=== PATIENT | female | born 1990 | race Caucasian/White ===

== ENCOUNTER 2017-12-27 19:42 | Emergency (ER) | payer MEDICAID ==
--- NOTE | 2017-12-27 20:10 | Emergency Department Record ---
History of Present Illness - General Chief complaint: Pain Stated complaint: HURTS ALL OVER Time Seen by Provider: 12/27/17 19:46 Source: Patient Mode of Arrival: Ambulatory Limitations: No limitations - History of Present Illness Initial comments: 27 yo female presents to ED for "all over body pain that began 1 week ago". Patient reports "I feel like there is a gravity blanket on me, and that I am bruised all over". Patient denies any bruising or injury/trauma. Patient denies specific abdominal pain or cramping symptoms, reports that she is 6 months . Patient denies health problems other than "tachycardia for years, my doctor does not know why". Patient denies fevers, chills, or recent illness. MD Complaint: Other Onset/Timin -: Week(s) History of Same: No Quality: Aching Consistency: Constant Improves with: Nothing Worsens with: Walking, Weight bearing Associated Symptoms: Denies other symptoms - Related Data Home Medications Medication Instructions Recorded Confirmed Last Taken Vit,Calc78/Iron/Folic 1 each PO DAILY 12/27/17 12/27/17 Unknown [Prenatabs FA Tablet] Ranitidine HCl [Zantac] 75 mg PO DAILY 12/27/17 12/27/17 Unknown Allergies Allergy/AdvReac Type Severity Reaction Status Date / Time No Known Drug Allergies Allergy Verified 12/27/17 19:48 Travel Screening - Travel/Exposure Within Last 30 Days Have you traveled within the last 30 days?: No - Travel/Exposure Within Last Year Have you traveled outside the [place] in the last year?: No - Additonal Travel Details Have you been exposed to anyone with a communicable illness?: No - Travel Symptoms Symptom Screening: None Review of Systems Constitutional: Denies: Chills, Fever, Malaise, Night sweats Eyes: Denies: Eye discharge, Eye pain ENT: Denies: Congestion, Ear pain, Epistaxis Respiratory: Denies: Cough, Dyspnea Cardiovascular: Denies: Chest pain, Dyspnea on exertion Endocrine: Denies: Fatigue, Heat or cold intolerance Gastrointestinal: Denies: Abdominal pain, Nausea, Vomiting Genitourinary: Denies: Incontinence, Retention Musculoskeletal: Reports: Myalgia. Denies: Arthralgia, Back pain, Gout, Joint swelling Skin: Denies: Bruising, Change in color Neurological: Denies: Abnormal gait, Confusion, Headache, Seizure Psychiatric: Denies: Anxiety Hematological/Lymphatic: Denies: Anemia, Blood Clots Past Medical History - SOCIAL HISTORY Smoking Status: Never smoker Alcohol Use: None Drug Use: None - RESPIRATORY Hx Respiratory Disorders: No - CARDIOVASCULAR Hx Cardio Disorders: No - NEURO Hx Neuro Disorders: No - GI Hx GI Disorders: No - Hx Genitourinary Disorders: No - ENDOCRINE Hx Endocrine Disorders: No - MUSCULOSKELETAL Hx Musculoskeletal Disorders: No - PSYCH Hx Psych Problems: No - HEMATOLOGY/ONCOLOGY Hx Hematology/Oncology Disorders: No Family Medical History Any Significant Family History?: No Physical Exam - General General Appearance: Alert, Oriented x3, Cooperative, No acute distress Limitations: No limitations - Head Head exam: Atraumatic, Normocephalic, Normal inspection Head exam detail: negative: Abrasion, Contusion, Pena's sign, General tenderness, Hematoma, Laceration - Eye Eye exam: Normal appearance. negative: Conjunctival injection, Periorbital swelling, Periorbital tenderness, Scleral icterus - ENT Ear exam: negative: Auricular hematoma, Auricular trauma Nasal Exam: negative: Active bleeding, Discharge, Dried blood, Foreign body Mouth exam: negative: Drooling, Laceration, Muffled voice, Tongue elevation - Neck Neck exam: Normal inspection. negative: Meningismus, Tenderness - Respiratory Respiratory exam: Normal lung sounds bilaterally. negative: Rales, Respiratory distress, Rhonchi, Stridor - Cardiovascular Cardiovascular Exam: Normal rhythm, Normal heart sounds, Tachycardia - GI/Abdominal GI/Abdominal exam: Soft. negative: Rebound, Rigid, Tenderness - Rectal Rectal exam: Deferred - exam: Deferred - Extremities Extremities exam: Normal inspection. negative: Calf tenderness, Pedal edema, Tenderness - Back Back exam: Denies: CVA tenderness (R), CVA tenderness (L) - Neurological Neurological exam: Alert, Normal gait, Oriented X3 - Psychiatric Psychiatric exam: Normal affect, Normal mood - Skin Skin exam: Normal color. negative: Abrasion Type of lesion: negative: abrasion Course Vital Signs 12/27/17 19:49 Temperature 99.2 F Pulse Rate [ 132 H Pulse Ox Probe] Respiratory 20 Rate Blood Pressure 128/73 [Left Arm] Pulse Ox 96 - Reevaluation(s) Reevaluation #1: 12/27/17 20:12 EKG NSR 126 Normal [place], Normal intervals including QT interval No evidence for WPW (no presence delta wave) There are no findings to suggest Brugada syndrome. There are no findings to suggest Hypertrophic Cardiomyopathy (Tall QRS, deep Q waves) Reevaluation #2: 12/27/17 20:30 heart tones 145 on examination. Reevaluation #3: 12/27/17 20:48 Labs reviewed and are grossly unremarkable for an acute process. Reevaluation #4: 12/27/17 20:56 Case was discussed with Dr. Rodriguez, all results were discussed as well as the patient's presentation, no further recommendations. Patient's repeat pulse 125 (again reports that this is normal for her). Patient appears stable for discharge at this time. Medical Decision Making - Lab Data Result diagrams: 12/27/17 20:15 12/27/17 20:15 Disposition Disposition: Discharge Clinical Impression: Myalgia Disposition: Home, Self-Care Condition: (2) Stable Instructions: Musculoskeletal Pain (ED) Additional Instructions: Return to ED if your symptoms worsen or if you have any concerns. Follow-up with your OB in 1-3 days for further evaluation of your symptoms. Forms: Patient Portal Access Time of Disposition: 20:59 Quality - Quality Measures Quality Measures: N/A - Blood Pressure Screening Does Patient Have Any of the Following: No Blood Pressure Classification: Pre-Hypertensive BP Reading Systolic Measurement: 128 Diastolic Measurement: 73 Screening for High Blood Pressure: < Pre-Hypertensive BP, F/U Documented > [ [id number]] Pre-Hypertensive Follow-up Interventions: Referral to alternative/primary care provider.
[2017-12-27] MEDS: 0.9 % SODIUM CHLORIDE 1000ML 1,000 ML IV SCH (20:21)
[2017-12-27 20:30] LABS: HEMOGLOBIN 12.3 gm/dl (11.6-16.0); MEAN CELL VOLUME 94.3 fl (81-97); MEAN CORPUSCULAR HEMOGLOBIN 30.5 pg (27-33); MEAN CORPUSCULAR HGB CONC 32.4 g/dl (32-36); MEAN PLATELET VOLUME 9.9 fl (7.4-10.4); PLATELET COUNT 169 K/uL (130-400); RED BLOOD COUNT 4.03 M/uL (3.80-5.40); RED CELL DISTRIBUTION WIDTH 14.9 % (11.5-14.5); URINE APPEARANCE CLEAR; URINE BILIRUBIN NEGATIVE (NEGATIVE); URINE BLOOD NEGATIVE (NEGATIVE); URINE COLOR YELLOW; URINE GLUCOSE (UA) NEGATIVE (NEGATIVE); URINE KETONE NEGATIVE (NEGATIVE); URINE LEUKOCYTE ESTERASE NEGATIVE (NEGATIVE); URINE NITRITE NEGATIVE (NEGATIVE); URINE PROTEIN NEGATIVE (NEGATIVE); URINE UROBILINOGEN 0.2 E.U./dL (0.20 - 1.00); WHITE BLOOD COUNT W/O DIFF 8.5 K/uL (4.2-12.2)
[2017-12-27 20:41] LABS: BILIRUBIN,TOTAL < 0.20 mg/dL (0.2-1.0); BLOOD UREA NITROGEN 7 mg/dL (6-20); CREATININE 0.4 mg/dL (0.5-0.9); EST GLOMERULAR FILTRATION RATE > 60 mL/min; TOTAL PROTEIN 6.5 g/dL (6.6-8.7)
[2017-12-27 20:43] LABS: GLUCOSE,RANDOM 139 mg/dL (74-109)
[2017-12-27 20:46] LABS: ALBUMIN 3.2 g/dL (4.0-5.0); ALKALINE PHOSPHATASE 72 U/L (35-104); ALT/SGPT 14 U/L (<33); AST/SGOT 16 U/L (10.0-35.0); CREATINE PHOSPHOKINASE 23 U/L (26-192)
== END 2017-12-27 21:20 | disposition home or self-care (01) ==
LOC: ER 19:42
DX: O26.892 Other specified pregnancy related conditions, second trimester (principal); M79.1 Myalgia; Z3A.24 24 weeks gestation of pregnancy
CPT/HCPCS: 80053; 81003; 82550; 85027; 93005; 93010; 99284; J7030